=== PATIENT | female | born 1965 | race Caucasian/White ===

== ENCOUNTER 2020-07-16 20:58 | Emergency (ER) | payer MEDICAID ==
[~2020-07-16] VITALS: Ht 165.1 cm; Wt 80.8 kg
[2020-07-16 21:06] VITALS: BP 150/88; Ht 165.1 cm; Wt 80.8 kg
== END 2020-07-16 22:04 | disposition home or self-care (01) ==
LOC: ED 20:58
DX: K59.00 Constipation, unspecified (principal); I10 Essential (primary) hypertension; E11.9 Type 2 diabetes mellitus without complications
CPT/HCPCS: J1885

== ENCOUNTER 2020-07-26 18:32 | Emergency (ER) | payer MEDICAID ==
[~2020-07-26] VITALS: Ht 165.1 cm; Wt 82.1 kg
[2020-07-26 18:35] VITALS: Ht 165.1 cm; Wt 82.1 kg
[2020-07-26 23:48] LABS: BASOPHIL % 1.2 % (0-2); PLATELET COUNT 208 x10^3mcL (130-400); RED CELL DISTRIBUTION WIDTH 14.5 % (11.5-14.5)
[2020-07-27 00:04] LABS: CALCIUM 8.7 mg/dL (8.5-10.1); CARBON DIOXIDE 22.7 mmol/L (21-32); CHLORIDE SERUM 104 mmol/L (98-107); CREATININE SERUM 0.6 mg/dL (0.6-1.0); GFR1 > 60 mL/min; GLUCOSE SERUM 106 mg/dL (74-106); POTASSIUM SERUM 3.5 mmol/L (3.5-5.1); SODIUM SERUM 139 mmol/L (136-145)
[2020-07-27 00:09] LABS: ALKALINE PHOSPHATASE 66 U/L (46-116); ALT/SGPT 23 U/L (14-59); AST/SGOT 14 U/L (15-37); BILIRUBIN TOTAL 0.2 mg/dL (0.20-1.00); LIPASE 198 IU/L (73-393); TOTAL PROTEIN, SERUM 6.7 g/dL (6.4-8.2)
[2020-07-27 00:10] LABS: ALBUMIN 3.3 g/dL (3.4-5.0)
[2020-07-27 02:15] VITALS: BP 119/71
== END 2020-07-27 02:15 | disposition home or self-care (01) ==
LOC: ED 18:32
PROVIDERS: Student in an Organized Health Care Education/Training Program
DX: K57.32 Diverticulitis of large intestine without perforation or abscess without bleeding (principal); I10 Essential (primary) hypertension; E11.9 Type 2 diabetes mellitus without complications; Z88.8 Allergy status to other drugs, medicaments and biological substances
CPT/HCPCS: J1885; Q9967

== ENCOUNTER 2020-08-04 00:04 | Emergency (ER) | payer MEDICAID ==
[~2020-08-04] VITALS: Ht 167.6 cm; Wt 79.8 kg
[2020-08-04 00:24] VITALS: Ht 167.6 cm; Wt 79.8 kg
[2020-08-04 01:49] LABS: BASOPHIL % 0.6 % (0-2); PLATELET COUNT 204 x10^3mcL (130-400)
[2020-08-04 01:57] LABS: CALCIUM 9.2 mg/dL (8.5-10.1); CARBON DIOXIDE 30.9 mmol/L (21-32); CHLORIDE SERUM 104 mmol/L (98-107); CREATININE SERUM 0.9 mg/dL (0.6-1.0); GFR1 > 60 mL/min; GLUCOSE SERUM 110 mg/dL (74-106); SODIUM SERUM 140 mmol/L (136-145)
[2020-08-04 02:01] LABS: ALBUMIN 3.9 g/dL (3.4-5.0); ALKALINE PHOSPHATASE 76 U/L (46-116); ALT/SGPT 23 U/L (14-59); AST/SGOT 13 U/L (15-37); BILIRUBIN TOTAL 0.29 mg/dL (0.20-1.00); LIPASE 254 IU/L (73-393); TOTAL PROTEIN, SERUM 7.7 g/dL (6.4-8.2)
[2020-08-04 02:06] LABS: RED CELL DISTRIBUTION WIDTH 14.9 % (11.5-14.5)
[2020-08-04 05:15] VITALS: BP 111/69
== END 2020-08-04 05:15 | disposition home or self-care (01) ==
LOC: ED 00:04
PROVIDERS: Student in an Organized Health Care Education/Training Program
DX: K57.92 Diverticulitis of intestine, part unspecified, without perforation or abscess without bleeding (principal); I10 Essential (primary) hypertension; E11.9 Type 2 diabetes mellitus without complications; Z88.8 Allergy status to other drugs, medicaments and biological substances
CPT/HCPCS: 85378; J1885; Q9967

== ENCOUNTER 2020-12-23 08:51 | Emergency (ER) | payer MEDICAID ==
[~2020-12-23] VITALS: Ht 167.6 cm; Wt 82.6 kg
[2020-12-23 09:00] VITALS: Ht 167.6 cm; Wt 82.6 kg
[2020-12-23 10:10] VITALS: BP 180/105
== END 2020-12-23 09:18 | disposition home or self-care (01) ==
LOC: ED 08:51
DX: M26.603 Bilateral temporomandibular joint disorder, unspecified (principal); I10 Essential (primary) hypertension; E11.9 Type 2 diabetes mellitus without complications; Z88.8 Allergy status to other drugs, medicaments and biological substances
CPT/HCPCS: 82962; J1885